=== PATIENT | female | born 1940 | race Caucasian/White ===

== ENCOUNTER 2018-08-17 10:42 | Observation (INO) ==
[2018-08-17] MEDS ORDERED: 0.9 % Sodium Chloride 500 ML IVC ONE (11:14)
[2018-08-17] MEDS ORDERED: Isovue-370 500 ML INFUS..BTL IV ONE (11:14)
--- NOTE | 2018-08-17 11:15 | Emergency Department Note ---
Disposition Clinical Impression: Pleural effusion, left Urinary tract infection Qualifiers: Urinary tract infection type: site unspecified Hematuria presence: without h ematuria Qualified Code(s): N39.0 - Urinary tract infection, site not specified Disposition: Admitted As Inpatient Condition: Fair Time of Disposition: 13:13 SOB HPI - General Chief Complaint: ED Shortness of Breath/Dyspnea Stated Complaint: ERIC Time Seen by Provider: 08/17/18 11:01 Source: patient, family (Granddaughter) Mode of arrival: ambulatory Limitations: no limitations Nursing Notes Reviewed: Yes Vital Signs Reviewed: Yes - History of Present Illness 78-year-old female history of lung, breast and pancreatic cancer which have all been treated and reportedly in remission presents emergency department with difficulty breathing. She states over the past week she is progressively more short of breath unable to catch her breath. She denies any fever coffer congestion. No chest pain. She cannot lay flat. She can only speak in 2 word sentences. She recently had a CT of her abdomen performed by her oncologist Dr. Kahn which at that time did reveal a left pleural effusion. She was not aware of the results. She also reports a history of DVT MPE when she was 1st diagnosed with lung cancer and was on Lovenox for 6 months but currently does not take anything. Her history includes right lung cancer which she received for radiation treatments that ended in 2015, she recently was diagnosed with breast cancer and had a lumpectomy to the left and was treated with radiation which ended February 2018. She had a history of pancreatic cancer 2011 and had a Whipple procedure. She otherwise denies any other complaints such as abdominal pain nausea vomiting urinary complaints. Pt Subjective Complaint: shortness of breath - Related Data Home Medications Medication Instructions Recorded Confirmed Aspirin Enteric Coated [Aspirin EC] 81 mg PO DAILY 07/08/15 08/17/18 Lisinopril/Hydrochlorothiazide 0.5 tab PO BID 07/08/15 08/17/18 [Zestoretic 10-12.5 mg Tablet] DiphenhydraMINE [Benadryl] 25 mg PO HS PRN 06/21/17 08/17/18 Docusate [Colace] 100 mg PO BID PRN 02/20/18 08/17/18 Allergies Allergy/AdvReac Type Severity Reaction Status Date / Time metformin AdvReac See Verified 08/17/18 10:46 Comments All systems ED: reviewed and negative except as stated. Review of Systems: As Per HPI Constitutional: Denies: fever, chills, weakness ENT ED: Denies: congestion Cardiovascular: Reports: dyspnea on exertion, orthopnea. Denies: chest pain, syncope Respiratory: Reports: dyspnea. Denies: cough Gastrointestinal: Denies: abdominal pain, nausea, vomiting, hematemesis Genitourinary: Denies: urgency, dysuria Musculoskeletal: Denies: back pain, neck pain Integumentary: Denies: rash, abrasion Neurological: Denies: headache Psychiatric: Denies: anxiety, depression Endocrine: Reports: fatigue Hematological/Lymphatic: Denies: easy bleeding Past Medical History - Past Medical History Attestation: Yes The following information was validated with the patient. Source: patient Medical history: Reports: cancer, diabetes, GERD, hypertension, pulmonary embolus, renal disease, thyroid disease Psychiatric history: Reports: anxiety - Social History Smoking Status: Former smoker Smokeless Tobacco Status: No Alcohol use: Reports: none Drug use: Reports: none Physical Exam - General Limitations: no limitations General appearance: alert, in distress (Mild respiratory, conversational dyspnea) - Head Head exam: atraumatic, normocephalic, normal inspection - Eye Eye exam: Present: normal appearance, PERRL, EOMI - ENT ENT exam: normal exam, normal oropharynx, mucous membranes moist - Neck Neck exam: Present: normal inspection, full ROM, trachea midline. Absent: tenderness - Chest Chest inspection: Present: normal inspection, symmetric chest wall rise, other (Report to the right chest, left lumpectomy). Absent: tenderness - Respiratory Respiratory exam: Present: respiratory distress (Conversational dyspnea), other (Decreased breath sounds to the left lung [place]). Absent: wheezes - Expanded Respiratory Exam Location: decreased breath sounds: Left - Cardiovascular Cardiovascular exam: Present: normal rhythm, tachycardia, normal heart sounds - Expanded Cardiovascular Exam Peripheral pulses: 2+: radial (R), radial (L) - Abdominal Exam Abdominal exam: Present: soft, Non-Tender, normal bowel sounds, scar (Midline). Absent: tenderness, distention, guarding, rebound, rigidity - Extremities Exam Extremities exam: Present: normal inspection, full ROM, normal capillary refill. Absent: tenderness, pedal edema, calf tenderness - Back Exam Back exam: Present: normal inspection, full ROM. Absent: tenderness - Neurological Exam Neurological exam: Present: alert, oriented X3, normal gait - Psychiatric Psychiatric exam: Present: normal affect, normal mood - Skin Skin exam: Present: warm, dry, intact, normal color. Absent: rash, cyanosis, diaphoresis Course Course Narrative: Patient presents with difficulty breathing progressively worse over the past week. She does have history of cancer. She was hypoxic and tachycardic on initial vital signs. She SIRS criteria. With her immunocompromised history, sepsis workup initiated. On physical exam lung field is clear to auscultation in the left side was diminished. Radial pulses are equal bilaterally. Given her recent history of cancer and history of blood clots will also obtain a CT of the chest to evaluate for possible blood clots as well. - Reevaluation(s) Reevaluation #1: Chest x-ray shows a large left-sided pleural effusion. This is likely cause of her symptoms today. However given her history of pulmonary embolism and malignancy will continue to evaluate for possible pulmonary embolism. Her labs shows a mild leukocytosis her platelets are 500 her INR is normal with some mild electrolyte abnormalities. Her lactate is less than 2. Her urinalysis does appear consistent with infection and will treat for urinary tract infection. She has been initiated on vancomycin and Zosyn given her initial sepsis alert. Patient will require admission and likely thoracentesis. At this time her respiratory status has improved. After 500 mL of normal saline her blood pressure remains normal in her heart rate has come down to 100. She is less dyspneic at rest and is actually 99 to 100% on room air. At this time she does not require immediate thoracentesis. Will likely consult interventional radiology for drainage. Time: 13:13 Reevaluation #2: CT scan of the chest does not reveal acute pulmonary embolism. Patient continues to be hemodynamically stable. She will be admitted and further management. Impression is left pleural effusion, dyspnea, urinary tract infection. Time: 14:24 - Consultations Consultation #1: Spoke with on-call hospitalist raffy Farr to admit for left pleural effusion, UTI, dyspnea. No further orders at this time Time: 14:24 Vital Signs Temperature 97.5 F L 08/17/18 10:47 Pulse Rate 117 08/17/18 10:47 Respiratory Rate 28 08/17/18 10:47 Blood Pressure 126/94 08/17/18 10:47 O2 Sat by Pulse Oximetry 95 08/17/18 10:47 Temperature 97.5 F L 08/17/18 10:47 Pulse Rate 117 08/17/18 10:47 Respiratory Rate 28 08/17/18 10:47 Blood Pressure 126/94 08/17/18 10:47 O2 Sat by Pulse Oximetry 95 08/17/18 10:47 Oxygen Delivery Oxygen Delivery Room Air Shortness of Breath/Dyspnea - MDM Narrative Medical decision making narrative: Patient was discussed with my attending physician who agrees with ED management and final disposition. They independently evaluated the patient. Please refer to their attestation to this encounter for additional information. This note was generated by [employer] voice recognition software and as a result grammatical or spelling errors may occur using this program. - Medical Records Medical records reviewed: Yes I reviewed the patient's medical records. - Lab Data Lab results reviewed: Yes I reviewed the patient's lab results. Result diagrams: 08/17/18 11:48 08/17/18 11:48 Lab Results 08/17/18 08/17/18 08/17/18 Range/Units 11:46 11:48 11:48 WBC 11.7 H (4.3-11.1) K/mcL RBC 5.23 H (3.82-4.97) M/mcL Hgb 15.4 (11.5-15.4) g/dL Hct 45.7 H (35.3-44.9) % MCV 87.4 (83.0-100.0) fL MCH 29.4 (28.0-33.3) pg MCHC 33.7 (31.6-35.5) g/dL RDW 12.6 (11.5-14.5) % Plt Count 504 H (140-400) K/mcL MPV 8.5 L (9.4-12.4) fL Immature Gran % 0.4 (0-4) % Seg Neutrophils % 81.1 % Lymphocytes % 11.6 % Monocytes % 5.6 % Eosinophils % 1.0 % Basophils % 0.3 % Neutrophils # 9.5 H (1.6-8.9) K/mcL Lymphocytes # 1.4 (0.6-4.6) K/mcL Monocytes # 0.7 (0.0-1.3) K/mcL Eosinophils # 0.1 (0.0-0.6) K/mcL Basophils # 0.0 (0.0-0.2) K/mcL PT 11.3 (9.4-12.1) Seconds INR 1.0 APTT 31.4 (26.0-36.0) Seconds Sodium (136-145) mEq/L Potassium (3.5-5.1) mEq/L Chloride (98-107) mEq/L Carbon Dioxide (23-29) mEq/L BUN (8-23) mg/dL Creatinine (0.60-1.20) mg/dL Est GFR ( Amer) (> 60) Est GFR (Non-Af Amer) (> 60) BUN/Creatinine Ratio (6-26) Glucose (70-105) mg/dL Calculated Osmolality (280-300) Lactic Acid 1.5 (0.5-2.2) mmol/L Calcium (8.6-10.3) mg/dL Phosphorus (2.7-4.5) mg/dL Magnesium (1.6-2.6) mg/dL Total Bilirubin (0.3-1.0) mg/dL Direct Bilirubin (0.0-0.2) mg/dL Indirect Bilirubin (0.0-1.2) mg/dL AST (13-39) Units/L ALT (7-52) Units/L Alkaline Phosphatase (34-104) Units/L Troponin I (< 0.04) ng/mL Serum Total Protein (6.4-8.9) g/dL Albumin (3.5-5.7) g/dL Globulin (2.4-3.5) g/dL Albumin/Globulin Ratio (1.1-2.2) Lipase (11-82) Units/L Urine Color (Yellow) Urine Clarity (Clear) Urine pH (5.0-8.0) pH Units Ur Specific [place] (1.010-1.025) Urine Protein (Neg-Trace) mg/dL Urine Glucose (UA) (Normal) mg/dL Urine Ketones (Negative) mg/dL Urine Blood (Negative) Urine Nitrite (Negative) Urine Bilirubin (Negative) Urine Urobilinogen (Normal) mg/dL Ur Leukocyte Esterase (Negative) Urine Microscopic RBC (0-3) per hpf Urine Microscopic WBC (0-3) per hpf Ur Squamous Epith Cells (None-Few) per lpf Urine Bacteria (None-Few) per hpf Hyaline Casts (None-Few) per lpf Ur Culture Indicated? (NO) 08/17/18 08/17/18 Range/Units 11:48 12:29 WBC (4.3-11.1) K/mcL RBC (3.82-4.97) M/mcL Hgb (11.5-15.4) g/dL Hct (35.3-44.9) % MCV (83.0-100.0) fL MCH (28.0-33.3) pg MCHC (31.6-35.5) g/dL RDW (11.5-14.5) % Plt Count (140-400) K/mcL MPV (9.4-12.4) fL Immature Gran % (0-4) % Seg Neutrophils % % Lymphocytes % % Monocytes % % Eosinophils % % Basophils % % Neutrophils # (1.6-8.9) K/mcL Lymphocytes # (0.6-4.6) K/mcL Monocytes # (0.0-1.3) K/mcL Eosinophils # (0.0-0.6) K/mcL Basophils # (0.0-0.2) K/mcL PT (9.4-12.1) Seconds INR APTT (26.0-36.0) Seconds Sodium 130 L (136-145) mEq/L Potassium 4.3 (3.5-5.1) mEq/L Chloride 95 L (98-107) mEq/L Carbon Dioxide 21 L (23-29) mEq/L BUN 20 (8-23) mg/dL Creatinine 0.83 (0.60-1.20) mg/dL Est GFR ( Amer) > 60 (> 60) Est GFR (Non-Af Amer) > 60 (> 60) BUN/Creatinine Ratio 24 (6-26) Glucose 151 H (70-105) mg/dL Calculated Osmolality 276 L (280-300) Lactic Acid (0.5-2.2) mmol/L Calcium 9.5 (8.6-10.3) mg/dL Phosphorus 3.6 (2.7-4.5) mg/dL Magnesium 1.9 (1.6-2.6) mg/dL Total Bilirubin 1.0 (0.3-1.0) mg/dL Direct Bilirubin 0.2 (0.0-0.2) mg/dL Indirect Bilirubin 0.8 (0.0-1.2) mg/dL AST 18 (13-39) Units/L ALT 17 (7-52) Units/L Alkaline Phosphatase 204 H (34-104) Units/L Troponin I < 0.03 (< 0.04) ng/mL Serum Total Protein 7.3 (6.4-8.9) g/dL Albumin 4.0 (3.5-5.7) g/dL Globulin 3.3 (2.4-3.5) g/dL Albumin/Globulin Ratio 1.2 (1.1-2.2) Lipase < 3 L (11-82) Units/L Urine Color Yellow (Yellow) Urine Clarity Hazy A (Clear) Urine pH 5.5 (5.0-8.0) pH Units Ur Specific [place] 1.020 (1.010-1.025) Urine Protein Trace (Neg-Trace) mg/dL Urine Glucose (UA) Normal (Normal) mg/dL Urine Ketones 15 H (Negative) mg/dL Urine Blood Negative (Negative) Urine Nitrite Positive A (Negative) Urine Bilirubin Small H (Negative) Urine Urobilinogen Normal (Normal) mg/dL Ur Leukocyte Esterase Large H (Negative) Urine Microscopic RBC 3-5 H (0-3) per hpf Urine Microscopic WBC TNTC H (0-3) per hpf Ur Squamous Epith Cells Many H (None-Few) per lpf Urine Bacteria Many H (None-Few) per hpf Hyaline Casts Few (None-Few) per lpf Ur Culture Indicated? NO. A (NO) - Radiology Data Radiology results reviewed: Yes I reviewed the patient's radiology results. Chest X-Ray 08/17/18 11:04 IMPRESSION: Large left pleural effusion, new from 06/18/2018. D/ / Bashir Zuniga MD / Bashir Zuniga MD Interpreting Provider: Bashir Zuniga MD Chest CTA 08/17/18 11:14 IMPRESSION: No evidence of acute pulmonary embolism. Large left pleural effusion with partial left lung collapse. Post radiation change in the right lung. D/ / Bashir Zuniga MD / Bashir Zuniga MD Interpreting Provider: Bashir Zuniga MD - EKG Data EKG attestation: Yes I reviewed and interpreted this EKG. EKG results narrative: EKG performed 1104 sinus tachycardia 111 beats per minute, normal axis, good R wave progression, no ST elevation or depression, no T wave inversion, intervals appear within normal limits. There is no old EKG available for comparison at this time, no acute ischemic changes. Attestation Statement - Attestation Attestation: I examined this patient and my medical decision-making was reviewed with the Resident Physician. I agree with the documented findings, disposition and treatment plan as described except to the extent set forth below. Findings consistent with large left-sided pleural effusion. We will admit for further management and drainage by interventional radiology. I do think the patient's dyspnea is exacerbated by the underlying pleural effusion. She will be admitted for further management
[2018-08-17 12:00] LABS: Basophils % 0.3 %; Eosinophils # 0.1 K/mcL (0.0-0.6); Hematocrit 45.7 % (35.3-44.9); Hemoglobin 15.4 g/dL (11.5-15.4); Immature Granulocytes % 0.4 % (0-4); Lymphocytes # 1.4 K/mcL (0.6-4.6); Lymphocytes % 11.6 %; Mean Corpuscular HGB Conc 33.7 g/dL (31.6-35.5); Mean Corpuscular Hemoglobin 29.4 pg (28.0-33.3); Mean Corpuscular Volume 87.4 fL (83.0-100.0); Mean Platelet Volume 8.5 fL (9.4-12.4); Monocytes # 0.7 K/mcL (0.0-1.3); Monocytes % 5.6 %; Neutrophils # 9.5 K/mcL (1.6-8.9); Platelet Count 504 K/mcL (140-400); Red Blood Count 5.23 M/mcL (3.82-4.97); Red Cell Distribution Width 12.6 % (11.5-14.5); Segmented Neutrophils % 81.1 %
[2018-08-17 12:07] LABS: Prothrombin Time 11.3 Seconds (9.4-12.1)
[2018-08-17 12:10] LABS: Activated Partial Thrombo Time 31.4 Seconds (26.0-36.0)
[2018-08-17 12:24] LABS: Alanine Aminotransferase 17 Units/L (7-52); Albumin/Globulin Ratio 1.2 (1.1-2.2); Alkaline Phosphatase 204 Units/L (34-104); Aspartate Amino Transferase 18 Units/L (13-39); BUN/Creatinine Ratio 24 (6-26); Bilirubin,Direct 0.2 mg/dL (0.0-0.2); Bilirubin,Indirect 0.8 mg/dL (0.0-1.2); Blood Urea Nitrogen 20 mg/dL (8-23); Calcium 9.5 mg/dL (8.6-10.3); Carbon Dioxide 21 mEq/L (23-29); Chloride 95 mEq/L (98-107); Globulin 3.3 g/dL (2.4-3.5); Glucose 151 mg/dL (70-105); Lipase < 3 Units/L (11-82); Magnesium 1.9 mg/dL (1.6-2.6); Osmolality,Calculated 276 (280-300); Phosphorous 3.6 mg/dL (2.7-4.5); Potassium 4.3 mEq/L (3.5-5.1); Sodium 130 mEq/L (136-145); Total Protein 7.3 g/dL (6.4-8.9); Troponin I < 0.03 ng/mL (< 0.04); eGFR For Non-African Americans > 60 (> 60)
[2018-08-17 12:44] LABS: Bilirubin,Urine Small (Negative); Blood,Urine Negative (Negative); Glucose,Urine (UA) Normal (Normal); Ketones,Urine 15 mg/dL (Negative); Leukocyte Esterase,Urine Large (Negative); Nitrite,Urine Positive (Negative); PH,Urine 5.5 pH Units (5.0-8.0); Protein,Urine Trace mg/dL (Neg-Trace); Urobilinogen,Urine Normal (Normal)
[2018-08-17 12:47] LABS: Bacteria,Urine Many per hpf (None-Few); Hyaline Casts,Urine Few per lpf (None-Few); Squamous Epithelial Cell,Urine Many per lpf (None-Few); WBC,Urine TNTC per hpf (0-3)
[2018-08-17 12:50] LABS: Clarity,Urine Hazy (Clear); Color,Urine Yellow (Yellow)
[2018-08-17] MEDS ORDERED: Piperacillin/Tazobactam 3.375 GM in Water for inj. (sterile) 20 ML 20 ML IVP ONE (13:05)
[2018-08-17] MEDS ORDERED: Naloxone 0.4 MG/ML INJ IVP PRN (15:11)
--- NOTE | 2018-08-17 15:36 | Internal Med History&Physical ---
Date of Encounter: 08/17/18 Time of Encounter: 15:34 Internal Medicine - H&P: HPI Chief complaint: difficulty breathing Admitted From: Home Plans for Post Hospital Care: Home History of present illness: Ms. Chung is a 78 year old female past medical history of diabetes not on any medication, hypertension, pancreatic cancer in 2011 status post Whipple and chemotherapy, right lung cancer in 2015 status post radiation and breast cancer in December 2017 status post lumpectomy and radiation is coming in with complain of difficulty breathing for past 2 weeks. Patient had her regular follow-up visit with oncologist in June at which time she had blood work and a CT scan follow-up ordered which she was about to go coming Saturday to discuss with her oncologist. However the past 2 weeks she has been having difficulty breathing which has progressed and or past 2-3 days has become worse which made her to come to ER. She denies any fevers or chills, nausea, vomiting or diarrhea. Denies any chest pain. Has some cough but denies any phlegm production. He had increased difficulty breathing on lying flat. Denies any previous cardiac history. Patient does have a history of pulmonary embolism over 3-4 years ago and was on blood thinner at that time are not currently. Patient denies any abdominal pain urinary frequency or urgency or bowel complaints except on and off constipation. She has UTI about 4 years ago. Denies any antibiotic use in the last year. Patient was evaluated in the ER with the CTA which showed no pulmonary embolism, large pleural effusion with partial lung collapse and radiation changes in the right. Patient had some difficulty breathing and was tachycardic. Labs shows white count of 11.7 and abnormal UA. Patient was prescribed vancomycin and Zosyn given difficulty breathing tachycardia. Admission was requested for further management. On interview patient in no distress able to count 1-20 in 1 breath. Slightly tachycardic. Blood pressure 125/91. She denies any chest pain. Currently feels slightly short of breath. Even asks to go home if possible. She was about to get vancomycin and Zosyn which were held by me given her lab abnormalities and SIRS criteria could be explained by pleural effusion and her UA was abnormal but poor sample and without any symptoms. She denies any urinary complaints, chest pain, leg swelling, abdominal pain. She does have chronic back pain. She manages her diabetes without medication only with diet. Past Med Surg Social Fam HX - Past Medical History Medical history: cancer, diabetes, GERD, hypertension, pulmonary embolus, renal disease, thyroid disease Additional medical history: pancreatic and breast and lung Cancer. CKD. [place] carinoma of lung. Thyroid nodule Psychiatric history: anxiety - Past Surgical History Additional surgical history: Whipple. left breast lumpectomy - Social History Smoking Status: Former smoker Smokeless Tobacco Status: No Alcohol use: none Drug use: none - Additional Family History Additional family history: sister had Breast cancer in 50s, Father had rheumatic fever and heart disease Internal Medicine - H&P: Meds Aspirin Enteric Coated [Aspirin EC] 81 mg PO DAILY 07/08/15 [History] Lisinopril/Hydrochlorothiazide [Zestoretic 10-12.5 mg Tablet] 0.5 tab PO BID 07/08/15 [History] DiphenhydraMINE [Benadryl] 25 mg PO HS PRN 06/21/17 [History] Docusate [Colace] 100 mg PO BID PRN 02/20/18 [History] Allergy/AdvReac Type Severity Reaction Status Date / Time metformin AdvReac See Verified 08/17/18 10:46 Comments All Systems PM: A 10-system review of systems was performed and is negative for pertinent findings except as documented above in the HPI. - Constitutional Vitals: Temp Pulse Resp BP Pulse Ox 97.5 F L 91 18 125/91 95 08/17/18 10:47 08/17/18 14:43 08/17/18 14:43 08/17/18 14:43 08/17/18 14:43 Exam: Constitutional: Vitals as noted. Conversant. No Apparent Distress. Well groomed. Eyes : Sclera white, conjunctiva clear, no lid lag, PEARLA. ENT : Grossly normal hearing. Oropharyngeal exam unremarkable. Moist mucus mem branes. No JVD, no cervical lymphadenopathy. no thyromegaly or mass. Respiratory : Decreased air entry on LT in lower and mid lung [place]. Rt entry good. No accessory muscle use, rales, rhonchi or wheezes Cardiovascular : Tachycardic, Normal rhythm, +S1, +S2. no murmur, gallop, rubs. No chest wall tenderness, Lt breast absent GI/Abdominal : Soft, Non-tender, Non-distended, normal bowel sounds, soft, no peritoneal signs. no orgenomegaly or mass appreciated. no hernia. Musculoskeletal: no deformity noted. no edema or cyanosis. warm extremities, pulses palpable and symmetrical in UE/LE. no calf tenderness. Neurological: AO X3, CN II-XII grossly intact, grossly normal motor and sensory exam. Skin: No skin rash, lesions or ulcers noted. Pych: Good insight and judgement. Intact memory. AOx3. Internal Med - H&P Results - Labs CBC & Chem 7: 08/17/18 11:48 08/17/18 11:48 Labs: Short CBC 08/17/18 Range/Units 11:48 WBC 11.7 H (4.3-11.1) K/mcL Hgb 15.4 (11.5-15.4) g/dL Hct 45.7 H (35.3-44.9) % Plt Count 504 H (140-400) K/mcL Neutrophils # 9.5 H (1.6-8.9) K/mcL BMP 08/17/18 11:48 Sodium 130 L Potassium 4.3 Chloride 95 L Carbon Dioxide 21 L BUN 20 Creatinine 0.83 Glucose 151 H Calcium 9.5 Cardiac Enzymes 08/17/18 Range/Units 11:48 Troponin I < 0.03 (< 0.04) ng/mL Liver Function 08/17/18 Range/Units 11:48 Total Bilirubin 1.0 (0.3-1.0) mg/dL Direct Bilirubin 0.2 (0.0-0.2) mg/dL AST 18 (13-39) Units/L ALT 17 (7-52) Units/L Alkaline Phosphatase 204 H (34-104) Units/L Albumin 4.0 (3.5-5.7) g/dL Urine 08/17/18 Range/Units 12:29 Urine Color Yellow (Yellow) Urine Clarity Hazy A (Clear) Urine pH 5.5 (5.0-8.0) pH Units Ur Specific [place] 1.020 (1.010-1.025) Urine Protein Trace (Neg-Trace) mg/dL Urine Glucose (UA) Normal (Normal) mg/dL - Impressions ITS Impressions Chest X-Ray 08/17/18 11:04 IMPRESSION: Large left pleural effusion, new from 06/18/2018. D/ / Bashir Zuniga MD / Bashir Zuniga MD Interpreting Provider: Bashir Zuniga MD Chest CTA 08/17/18 11:14 IMPRESSION: No evidence of acute pulmonary embolism. Large left pleural effusion with partial left lung collapse. Post radiation change in the right lung. D/ / Bashir Zuniga MD / Bashir Zuniga MD Interpreting Provider: Bashir Zuniga MD - Assessment and plan (1) Pleural effusion, left Current Visit: Yes Status: Acute Assessment and plan: Shortness of breath with large pleural effusion - CTA negative for pulmonary embolism we will arrange - Troponin negative and EKG with sinus tachycardia - In the setting of previous cancer malignant pleural effusion in differential. - We will arrange for IR guided diagnostic and therapeutic thoracentesis tomorrow. We will send pleural fluid sample for testing cytology, pH, protein, LDH, cell count and glucose - Does not appear to have infectious process ongoing. SIRS criteria could be explained by her effusion. We will follow up blood cultures - We will hold antibiotics as of now and monitor. (2) Abnormal urinalysis Current Visit: Yes Status: Acute Assessment and plan: - Patient asymptomatic - Poor urine sample - We will repeat urine analysis - We will consider antibiotic depending on the results and patient's clinical status. (3) History of pulmonary embolism Current Visit: Yes Status: Acute Assessment and plan: - No evidence of PE - Monitor for now (4) History of pancreatic cancer Current Visit: Yes Status: Acute Assessment and plan: - Malignant pleural effusion possibility - Follow-up pleural fluid studies - Recent CA-19-9 on 08/13/2018 were 1700 compared to 200s in 07/01/2018 - We will consult oncology (5) History of breast cancer Current Visit: Yes Status: Acute (6) HTN (hypertension) Current Visit: Yes Status: Acute Assessment and plan: - Blood pressure currently stable - Monitor off antihypertensives given large pleural effusion Qualifiers: Hypertension type: essential hypertension Qualified Code(s): I10 - Essential (primary) hypertension (7) Diabetes Current Visit: Yes Status: Acute Assessment and plan: - Management diet at home - Monitor Accu-Cheks Qualifiers: Qualified Code(s): E11.9 - Type 2 diabetes mellitus without complications - Time Spent With Patient Total time spent is greater than 50% in coordination of care (as documented) at patient's floor/unit and/or counseling patient:
[2018-08-17] MEDS: *HR* Heparin 5,000 UNIT/ML VIAL SQ SCH (22:06)
[2018-08-17] MEDS ORDERED: Melatonin 3 MG TABLET PO ONE (23:06)
[2018-08-18] MEDS ORDERED: Piperacillin/Tazobactam 3.375 GM in 0.9 % Sodium Chloride Mini Bag 100 ML IVPB SCH
[2018-08-18 05:02] LABS: Bilirubin,Urine Negative (Negative); Blood,Urine Negative (Negative); Clarity,Urine Clear (Clear); Color,Urine Yellow (Yellow); Glucose,Urine (UA) Normal (Normal); Ketones,Urine 40 mg/dL (Negative); Leukocyte Esterase,Urine Moderate (Negative); Nitrite,Urine Positive (Negative); PH,Urine 5.5 pH Units (5.0-8.0); Protein,Urine Negative (Neg-Trace); Specific Gravity,Urine > 1.030 (1.010-1.025); Urobilinogen,Urine Normal (Normal)
[2018-08-18 05:05] LABS: Bacteria,Urine Many per hpf (None-Few); Hyaline Casts,Urine None Seen per lpf (None-Few); Squamous Epithelial Cell,Urine Many per lpf (None-Few); WBC,Urine 30-50 per hpf (0-3)
[2018-08-18 05:09] LABS: Basophils # 0.1 K/mcL (0.0-0.2); Basophils % 0.5 %; Eosinophils # 0.3 K/mcL (0.0-0.6); Eosinophils % 3.2 %; Hematocrit 42.6 % (35.3-44.9); Hemoglobin 14.1 g/dL (11.5-15.4); Immature Granulocytes % 0.3 % (0-4); Lymphocytes # 2.1 K/mcL (0.6-4.6); Lymphocytes % 21.2 %; Mean Corpuscular HGB Conc 33.1 g/dL (31.6-35.5); Mean Corpuscular Volume 87.7 fL (83.0-100.0); Mean Platelet Volume 8.7 fL (9.4-12.4); Monocytes # 0.8 K/mcL (0.0-1.3); Monocytes % 8.2 %; Neutrophils # 6.5 K/mcL (1.6-8.9); Platelet Count 517 K/mcL (140-400); Red Blood Count 4.86 M/mcL (3.82-4.97); Red Cell Distribution Width 12.7 % (11.5-14.5); Segmented Neutrophils % 66.6 %
[2018-08-18 05:24] LABS: Alanine Aminotransferase 15 Units/L (7-52); Albumin 3.7 g/dL (3.5-5.7); Albumin/Globulin Ratio 1.3 (1.1-2.2); Alkaline Phosphatase 179 Units/L (34-104); Aspartate Amino Transferase 17 Units/L (13-39); BUN/Creatinine Ratio 25 (6-26); Blood Urea Nitrogen 19 mg/dL (8-23); Calcium 9.1 mg/dL (8.6-10.3); Carbon Dioxide 24 mEq/L (23-29); Chloride 96 mEq/L (98-107); Globulin 2.9 g/dL (2.4-3.5); Glucose 116 mg/dL (70-105); Osmolality,Calculated 273 (280-300); Potassium 4.3 mEq/L (3.5-5.1); Sodium 130 mEq/L (136-145); Total Protein 6.6 g/dL (6.4-8.9); eGFR For Non-African Americans > 60 (> 60)
[2018-08-18] MEDS: *HR* Heparin 5,000 UNIT/ML VIAL SQ SCH (06:05)
[2018-08-18 08:10] VITALS: BP 131/96
[2018-08-18] MEDS ORDERED: Aspirin Enteric Coated 81 MG Tablet PO SCH (09:00)
--- NOTE | 2018-08-18 10:43 | Procedure Note ---
Date of procedure: 08/18/18 Pre-op diagnosis: pleural effusion Post-op diagnosis: same Procedure: Thoracentesis Date: 08/18/2018 Time: 948 Indication: Large pleural effusion Resident: Bry Byers DO Attending: Tereso Laguerre MD A time-out was completed verifying correct patient, procedure, site, positioning, and special equipment if applicable. The patients Left side was prepped and draped in a sterile manner after the appropriate infiltration level was confirmed by ultrasound. 1% lidocaine was used anesthetize the surrounding skin. A finder needle was then used to locate fluid and red/brown fluid was obtained. A 10-blade scalpel used to make the incision. The thoracentesis catheter was then threaded without difficulty. The patient had 1400ml of red/brown fluid removed. Tereso Laguerre MD was present for the entire procedure. A post-procedure chest x-ray was ordered and the fluid will be sent for several studies. Estimated Blood Loss: 0ml The patient tolerated the procedure well and there were no complications. Anesthesia: local Surgeon: Bry Byers Was there an gallery assistant present: Yes Shipping And Receiving Specialist: Tereso Laguerre Estimated blood loss (cc): 0 Specimen: pleural fluid Condition: stable Disposition: no change
--- NOTE | 2018-08-18 11:10 | Oncology Inp Consult Note ---
<Ben Bronson - Last Filed: 08/18/18 13:43> Date of Encounter: 08/18/18 Time of Encounter: 11:07 Assessment and Plan (1) Pleural effusion, left Status: Acute Assessment and plan: S/p thoracentesis this afternoon. Significant improvement in symptoms since. Approx 1.5 L of fluid removed. Pleural fluid testing has been ordered to evaluate for possible malignant etiology. Patient is doing well and will be ready for discharge this afternoon per primary team. She will need to follow up with Dr. Kahn in office for findings of pleural fluid analysis with further recommendations pending lab findings. (2) History of pancreatic cancer Status: Acute Assessment and plan: Pancreatic cancer s/p whipple in 2013. Possible metastasis to right lower lobe vs lung primary. CA 19-9 increasing over the past month, continues to rise Patient missed todays outpatient appointment with Dr. Kahn due to hospitalization. Dr. Kahn has seen her during this visit, with further recommendations pending her attestation will need require further outpatient follow up. - Data of Consult Patient: known to practice within the last 3 years Consult date: 08/17/18 Requesting Physician: Alessandro Jiménez MD Primary Care Provider: Mike Eastman DO - Consult Narrative Reason for consult: Increasing CA-19-9, left pleural effusion history of pancreatic/lung cancer History of present illness: Ms. Chung is a very pleasant 78-year-old female with a history significant for pancreatic, lung, and breast cancers. She is a known patient of Dr. Kahn, and was scheduled to see her today in the outpatient clinic. Patient was seen and evaluated at the bedside in the presence of her daughter and history was obtained from the patient as well as the chart. She presented yesterday afternoon to the ED for evaluation of worsening shortness of breath. She reports of this and been present for approximately 2 weeks and acutely worsened over the past few days. She denies shortness of breath, fever, chills, nausea, vomiting, or bowel changes. She endorses mild intermittent coughing without production of phlegm or blood. She admits to a history of pulmonary embolism proximally 4 years ago she is not on blood thinning medication at this time. She was initially started on antibiotic therapy by the ED this was later discontinued by the hospitalist secondary to absence of infectious source. CTA was obtained with no evidence of pulmonary embolism however a large left pleural effusion with compression atelectasis was identified as well as post radiation changes of the right lung. By my evaluation she was status post thoracentesis with removal of approximately 1.5 L of fluid. She does admit to improved respiratory status since procedure. Pancreatic cancer was diagnosed in 2011 treated with Whipple and chemotherapy in 2012 Right lower lobe nodule identified in 2015 found to be well-differentiated adenocarcinoma, pancreatic versus lung primary disease. She underwent SBRT in December 2016. 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 CA-19-9 found to be increased for ~20>200 at last oncology office visit. This was repeated on 08/12/2018 and found to be ~1700. CT of the abdomen pelvis was also done on 07/29/2018 without evidence of local pancreatic recurrence, left pleural effusion was identified of moderate size on that study. Ms. Chung was scheduled for follow-up outpatient oncology this afternoon. Past Med Surg Social Fam HX - Past Medical History Medical history: cancer, diabetes, GERD, hypertension, pulmonary embolus, renal disease, thyroid disease Additional medical history: pancreatic and breast and lung Cancer. CKD. Adenocarinoma of lung. Thyroid nodule Psychiatric history: anxiety - Past Surgical History Additional surgical history: Whipple. left breast lumpectomy - Social History Smoking Status: Former smoker Smokeless Tobacco Status: No Alcohol use: none Drug use: none - Family History Father Living Status: Age at : 86 Cause of : [place] Hx Family Cardiac Disorders: Yes Hx Family Respiratory Disorders: No Hx Family Medical Disorders: Yes Medications and Allergies RX: Aspirin Enteric Coated [Aspirin EC] 81 mg PO DAILY 07/08/15 [History] RX: Lisinopril/Hydrochlorothiazide [Zestoretic 10-12.5 mg Tablet] 0.5 tab PO BID 07/08/15 [History] RX: DiphenhydraMINE [Benadryl] 25 mg PO HS PRN 06/21/17 [History] RX: Docusate [Colace] 100 mg PO BID PRN 02/20/18 [History] Allergy/AdvReac Type Severity Reaction Status Date / Time metformin AdvReac See Verified 08/17/18 10:46 Comments Constitutional: Absent: chills, night sweats, weight loss Eyes: Absent: change in vision Nose, mouth and throat: Absent: dysphagia Breasts: Present: other (Status post partial mastectomy) Cardiovascular: Present: dyspnea. Absent: chest pain Respiratory: Present: dyspnea. Absent: hemoptysis Gastrointestinal: Absent: abdominal pain, change in bowel habits, dysphagia Genitourinary: Absent: dysuria Neurological: Absent: confusion, dizziness Hematologic/Lymphatic: Absent: easy bleeding, easy bruising, lymphadenopathy Oncology - Exam - Constitutional Vitals: Temp Pulse Resp BP Pulse Ox 97.9 F 110 22 131/96 94 08/18/18 08:05 08/18/18 08:05 08/18/18 08:05 08/18/18 08:05 08/18/18 08:05 General appearance: cooperative, no acute distress - Head Head exam: Present: atraumatic, normocephalic - Eye Eye exam: Present: PERRL, conjuntiva pink - ENT ENT exam: Present: mucous membranes moist - Neck Neck exam: Present: full ROM. Absent: lymphadenopathy, tenderness - Respiratory Respiratory exam: Present: decreased breath sounds (Diminished breath sounds of the left lower lung [place] with dullness to percussion) - Expanded Respiratory Exam Location: decreased breath sounds: Left, dullness to percussion: Left - Cardiovascular Cardiovascular exam: Present: RRR, +S1, +S2 - GI/Abdominal GI/Abdominal exam: Present: normal bowel sounds, soft. Absent: distended, guarding, tenderness - Extremities Exam Extremities exam: Present: normal inspection - Back Exam Back exam: Present: full ROM, normal inspection - Neurological Exam Neurological exam: Present: CN II-XII intact, oriented X3, no focal deficits, strengths equal and symetr throughout - Psychiatric Psychiatric exam: Present: normal affect, normal mood - Skin Skin exam: Present: dry Oncology - Results Labs: 08/18/18 08/18/18 08/18/18 04:20 04:20 04:20 WBC 9.8 RBC 4.86 Hgb 14.1 Hct 42.6 MCV 87.7 MCH 29.0 MCHC 33.1 RDW 12.7 Plt Count 517 H MPV 8.7 L Immature Gran % 0.3 Seg Neutrophils % 66.6 Lymphocytes % 21.2 Monocytes % 8.2 Eosinophils % 3.2 Basophils % 0.5 Neutrophils # 6.5 Lymphocytes # 2.1 Monocytes # 0.8 Eosinophils # 0.3 Basophils # 0.1 PT INR APTT Sodium 130 L Potassium 4.3 Chloride 96 L Carbon Dioxide 24 BUN 19 Creatinine 0.77 Est GFR ( Amer) > 60 Est GFR (Non-Af Amer) > 60 BUN/Creatinine Ratio 25 Glucose 116 H Calculated Osmolality 273 L Lactic Acid Calcium 9.1 Phosphorus Magnesium Total Bilirubin 1.0 Direct Bilirubin Indirect Bilirubin AST 17 ALT 15 Alkaline Phosphatase 179 H Lactate Dehydrogenase 116 L Troponin I Serum Total Protein 6.6 Albumin 3.7 Globulin 2.9 Albumin/Globulin Ratio 1.3 Lipase Urine Color Urine Clarity Urine pH Ur Specific [place] Urine Protein Urine Glucose (UA) Urine Ketones Urine Blood Urine Nitrite Urine Bilirubin Urine Urobilinogen Ur Leukocyte Esterase Urine Microscopic RBC Urine Microscopic WBC Ur Squamous Epith Cells Urine Bacteria Hyaline Casts Ur Culture Indicated? 08/18/18 08/17/18 08/17/18 04:20 12:29 11:48 WBC RBC Hgb Hct MCV MCH MCHC RDW Plt Count MPV Immature Gran % Seg Neutrophils % Lymphocytes % Monocytes % Eosinophils % Basophils % Neutrophils # Lymphocytes # Monocytes # Eosinophils # Basophils # PT INR APTT Sodium 130 L Potassium 4.3 Chloride 95 L Carbon Dioxide 21 L BUN 20 Creatinine 0.83 Est GFR ( Amer) > 60 Est GFR (Non-Af Amer) > 60 BUN/Creatinine Ratio 24 Glucose 151 H Calculated Osmolality 276 L Lactic Acid Calcium 9.5 Phosphorus 3.6 Magnesium 1.9 Total Bilirubin 1.0 Direct Bilirubin 0.2 Indirect Bilirubin 0.8 AST 18 ALT 17 Alkaline Phosphatase 204 H Lactate Dehydrogenase Troponin I < 0.03 Serum Total Protein 7.3 Albumin 4.0 Globulin 3.3 Albumin/Globulin Ratio 1.2 Lipase < 3 L Urine Color Yellow Yellow Urine Clarity Clear Hazy A Urine pH 5.5 5.5 Ur Specific [place] > 1.030 H 1.020 Urine Protein Negative Trace Urine Glucose (UA) Normal Normal Urine Ketones 40 H 15 H Urine Blood Negative Negative Urine Nitrite Positive A Positive A Urine Bilirubin Negative Small H Urine Urobilinogen Normal Normal Ur Leukocyte Esterase Moderate H Large H Urine Microscopic RBC 3-5 H 3-5 H Urine Microscopic WBC 30-50 H TNTC H Ur Squamous Epith Cells Many H Many H Urine Bacteria Many H Many H Hyaline Casts None Seen Few Ur Culture Indicated? NO. A 08/17/18 08/17/18 08/17/18 11:48 11:48 11:46 WBC 11.7 H RBC 5.23 H Hgb 15.4 Hct 45.7 H MCV 87.4 MCH 29.4 MCHC 33.7 RDW 12.6 Plt Count 504 H MPV 8.5 L Immature Gran % 0.4 Seg Neutrophils % 81.1 Lymphocytes % 11.6 Monocytes % 5.6 Eosinophils % 1.0 Basophils % 0.3 Neutrophils # 9.5 H Lymphocytes # 1.4 Monocytes # 0.7 Eosinophils # 0.1 Basophils # 0.0 PT 11.3 INR 1.0 APTT 31.4 Sodium Potassium Chloride Carbon Dioxide BUN Creatinine Est GFR ( Amer) Est GFR (Non-Af Amer) BUN/Creatinine Ratio Glucose Calculated Osmolality Lactic Acid 1.5 Calcium Phosphorus Magnesium Total Bilirubin Direct Bilirubin Indirect Bilirubin AST ALT Alkaline Phosphatase Lactate Dehydrogenase Troponin I Serum Total Protein Albumin Globulin Albumin/Globulin Ratio Lipase Urine Color Urine Clarity Urine pH Ur Specific [place] Urine Protein Urine Glucose (UA) Urine Ketones Urine Blood Urine Nitrite Urine Bilirubin Urine Urobilinogen Ur Leukocyte Esterase Urine Microscopic RBC Urine Microscopic WBC Ur Squamous Epith Cells Urine Bacteria Hyaline Casts Ur Culture Indicated? Consult Discharge Plan - Plan Referrals: Manuel Eastman DO [Primary Care Provider] - <[email or web address] - Last Filed: 08/18/18 15:39> Date of Encounter: 08/18/18 - Data of Consult Requesting Physician: Alessandro Jiménez MD Primary Care Provider: Mike Eastman DO - Consult Narrative History of present illness: Ms. Chung is a 78 year old female, patient known to us with pancreatic cancer, status post surgery, adjuvant chemotherapy in early 2012 with right lung nodule adenocarcinoma primary versus secondary status post radiation therapy as well as adenoid cystic carcinoma of the left breast in 2018 was 100 with shortness of breath worsening for 2 weeks, CT imaging had shown a large left new pleural effusion. Patient had thoracentesis today, cytology to be sent, for diagnostic workup. CA-19-9 elevation suggests recurrent pancreatic cancer. She is willing to consider further therapy after appropriate diagnostic workup. She will have a return to my clinic for follow-up soon. She is saturating fine on 2 L of oxygen post thoracentesis. X-ray need to be followed. Plan of care discussed with patient in detail. I have seen, examined, reviewed labs, imaging and above document on this patient myself and my medical decision-making was reviewed with the resident doctor Audie Contreras. I agree with the documented findings, disposition and treatment plan as described above in his documentation. Oncology - Exam - Constitutional Vitals: Temp Pulse Resp BP Pulse Ox 97.9 F 110 22 131/96 94 08/18/18 08:05 08/18/18 08:05 08/18/18 08:05 08/18/18 08:05 08/18/18 08:05 Oncology - Results Labs: 08/18/18 08/18/18 08/18/18 10:05 10:05 05:55 WBC RBC Hgb Hct MCV MCH MCHC RDW Plt Count MPV Immature Gran % Seg Neutrophils % Lymphocytes % Monocytes % Eosinophils % Basophils % Neutrophils # Lymphocytes # Monocytes # Eosinophils # Basophils # PT INR APTT Sodium Potassium Chloride Carbon Dioxide BUN Creatinine Est GFR ( Amer) Est GFR (Non-Af Amer) BUN/Creatinine Ratio Glucose POC Glucose 130 H Calculated Osmolality Lactic Acid Calcium Phosphorus Magnesium Total Bilirubin Direct Bilirubin Indirect Bilirubin AST ALT Alkaline Phosphatase Lactate Dehydrogenase Troponin I Serum Total Protein Albumin Globulin Albumin/Globulin Ratio Lipase Urine Color Urine Clarity Urine pH Ur Specific [place] Urine Protein Urine Glucose (UA) Urine Ketones Urine Blood Urine Nitrite Urine Bilirubin Urine Urobilinogen Ur Leukocyte Esterase Urine Microscopic RBC Urine Microscopic WBC Ur Squamous Epith Cells Urine Bacteria Hyaline Casts Ur Culture Indicated? Pleural Fluid Volume 950.0 Pleural Appearance Bloody A Pleural pH 8.00 Pleural RBC 0.064 H Pleural Tot Nuc Cell 2035 H Pleural Neutrophils 10.0 Pleural Band Neuts 1.0 Pleural Eosinophils 2.0 Pleural Basophils Test Not Performed Pleural Lymphocytes % 59.0 Pleural Monocytes % Test Not Performed Pleural Other Cells % 28.0 Pleural Total Protein 5.1 Pleural LDH 281 Pleural Glucose 48 Pleural Amylase 19 08/18/18 08/18/18 08/18/18 04:20 04:20 04:20 WBC 9.8 RBC 4.86 Hgb 14.1 Hct 42.6 MCV 87.7 MCH 29.0 MCHC 33.1 RDW 12.7 Plt Count 517 H MPV 8.7 L Immature Gran % 0.3 Seg Neutrophils % 66.6 Lymphocytes % 21.2 Monocytes % 8.2 Eosinophils % 3.2 Basophils % 0.5 Neutrophils # 6.5 Lymphocytes # 2.1 Monocytes # 0.8 Eosinophils # 0.3 Basophils # 0.1 PT INR APTT Sodium 130 L Potassium 4.3 Chloride 96 L Carbon Dioxide 24 BUN 19 Creatinine 0.77 Est GFR ( Amer) > 60 Est GFR (Non-Af Amer) > 60 BUN/Creatinine Ratio 25 Glucose 116 H POC Glucose Calculated Osmolality 273 L Lactic Acid Calcium 9.1 Phosphorus Magnesium Total Bilirubin 1.0 Direct Bilirubin Indirect Bilirubin AST 17 ALT 15 Alkaline Phosphatase 179 H Lactate Dehydrogenase 116 L Troponin I Serum Total Protein 6.6 Albumin 3.7 Globulin 2.9 Albumin/Globulin Ratio 1.3 Lipase Urine Color Urine Clarity Urine pH Ur Specific [place] Urine Protein Urine Glucose (UA) Urine Ketones Urine Blood Urine Nitrite Urine Bilirubin Urine Urobilinogen Ur Leukocyte Esterase Urine Microscopic RBC Urine Microscopic WBC Ur Squamous Epith Cells Urine Bacteria Hyaline Casts Ur Culture Indicated? Pleural Fluid Volume Pleural Appearance Pleural pH Pleural RBC Pleural Tot Nuc Cell Pleural Neutrophils Pleural Band Neuts Pleural Eosinophils Pleural Basophils Pleural Lymphocytes % Pleural Monocytes % Pleural Other Cells % Pleural Total Protein Pleural LDH Pleural Glucose Pleural Amylase 08/18/18 08/17/18 08/17/18 04:20 12:29 11:48 WBC RBC Hgb Hct MCV MCH MCHC RDW Plt Count MPV Immature Gran % Seg Neutrophils % Lymphocytes % Monocytes % Eosinophils % Basophils % Neutrophils # Lymphocytes # Monocytes # Eosinophils # Basophils # PT INR APTT Sodium 130 L Potassium 4.3 Chloride 95 L Carbon Dioxide 21 L BUN 20 Creatinine 0.83 Est GFR ( Amer) > 60 Est GFR (Non-Af Amer) > 60 BUN/Creatinine Ratio 24 Glucose 151 H POC Glucose Calculated Osmolality 276 L Lactic Acid Calcium 9.5 Phosphorus 3.6 Magnesium 1.9 Total Bilirubin 1.0 Direct Bilirubin 0.2 Indirect Bilirubin 0.8 AST 18 ALT 17 Alkaline Phosphatase 204 H Lactate Dehydrogenase Troponin I < 0.03 Serum Total Protein 7.3 Albumin 4.0 Globulin 3.3 Albumin/Globulin Ratio 1.2 Lipase < 3 L Urine Color Yellow Yellow Urine Clarity Clear Hazy A Urine pH 5.5 5.5 Ur Specific [place] > 1.030 H 1.020 Urine Protein Negative Trace Urine Glucose (UA) Normal Normal Urine Ketones 40 H 15 H Urine Blood Negative Negative Urine Nitrite Positive A Positive A Urine Bilirubin Negative Small H Urine Urobilinogen Normal Normal Ur Leukocyte Esterase Moderate H Large H Urine Microscopic RBC 3-5 H 3-5 H Urine Microscopic WBC 30-50 H TNTC H Ur Squamous Epith Cells Many H Many H Urine Bacteria Many H Many H Hyaline Casts None Seen Few Ur Culture Indicated? NO. A Pleural Fluid Volume Pleural Appearance Pleural pH Pleural RBC Pleural Tot Nuc Cell Pleural Neutrophils Pleural Band Neuts Pleural Eosinophils Pleural Basophils Pleural Lymphocytes % Pleural Monocytes % Pleural Other Cells % Pleural Total Protein Pleural LDH Pleural Glucose Pleural Amylase 08/17/18 08/17/18 08/17/18 11:48 11:48 11:46 WBC 11.7 H RBC 5.23 H Hgb 15.4 Hct 45.7 H MCV 87.4 MCH 29.4 MCHC 33.7 RDW 12.6 Plt Count 504 H MPV 8.5 L Immature Gran % 0.4 Seg Neutrophils % 81.1 Lymphocytes % 11.6 Monocytes % 5.6 Eosinophils % 1.0 Basophils % 0.3 Neutrophils # 9.5 H Lymphocytes # 1.4 Monocytes # 0.7 Eosinophils # 0.1 Basophils # 0.0 PT 11.3 INR 1.0 APTT 31.4 Sodium Potassium Chloride Carbon Dioxide BUN Creatinine Est GFR ( Amer) Est GFR (Non-Af Amer) BUN/Creatinine Ratio Glucose POC Glucose Calculated Osmolality Lactic Acid 1.5 Calcium Phosphorus Magnesium Total Bilirubin Direct Bilirubin Indirect Bilirubin AST ALT Alkaline Phosphatase Lactate Dehydrogenase Troponin I Serum Total Protein Albumin Globulin Albumin/Globulin Ratio Lipase Urine Color Urine Clarity Urine pH Ur Specific [place] Urine Protein Urine Glucose (UA) Urine Ketones Urine Blood Urine Nitrite Urine Bilirubin Urine Urobilinogen Ur Leukocyte Esterase Urine Microscopic RBC Urine Microscopic WBC Ur Squamous Epith Cells Urine Bacteria Hyaline Casts Ur Culture Indicated? Pleural Fluid Volume Pleural Appearance Pleural pH Pleural RBC Pleural Tot Nuc Cell Pleural Neutrophils Pleural Band Neuts Pleural Eosinophils Pleural Basophils Pleural Lymphocytes % Pleural Monocytes % Pleural Other Cells % Pleural Total Protein Pleural LDH Pleural Glucose Pleural Amylase - Attending Attestation I examined this patient and my medical decision-making was reviewed with the resident physician Dr. Ben Bronson. I agree with the documented findings, disposition and treatment plan as described except to the extent set forth below. Inpatient Charges Provider: Dr. Ivonne Aleman Consult - Inpatient: [id number]
[2018-08-18 11:32] LABS: Total Protein,Pleural Fluid 5.1 g/dL (No Ref Range)
[2018-08-18 11:50] LABS: RBC,Pleural Fluid 0.064 M/mcL
--- NOTE | 2018-08-18 12:38 | Discharge Summary ---
- NOTES TO OUTPATIENT PROVIDER Notes to Outpatient Provider: Follow-up remaining pleural fluid studies. We will need to follow up with oncology. Follow-up signs for pneumonia or UTI. Did not receive any antibiotics. Orders not resulted at time of discharge: Pending orders 08/17/18 11:48 Culture,Blood [BC] Stat 08/18/18 10:05 Cell Count w Diff, Pleural Fld [BF] AM 0400 pH,Pleural Fluid [BF] AM 0400 08/18/18 10:12 Cytology [PTH] Routine Date of Encounter: 08/18/18 Time of Encounter: 11:45 - Discharge Diagnosis (1) Pleural effusion, left Priority: Primary Status: Acute (2) Abnormal urinalysis Priority: Secondary Status: Acute (3) History of pulmonary embolism Priority: Secondary Status: Acute (4) History of pancreatic cancer Priority: Secondary Status: Acute (5) History of breast cancer Priority: Secondary Status: Acute (6) HTN (hypertension) Priority: Secondary Status: Acute Qualifiers: Hypertension type: essential hypertension Qualified Code(s): I10 - Essential (primary) hypertension (7) Diabetes Priority: Secondary Status: Acute Qualifiers: Qualified Code(s): E11.9 - Type 2 diabetes mellitus without complications Hospital course: Ms. Chung is a 78 year old female past medical history of diabetes not on any m edication, hypertension, pancreatic cancer in 2011 status post Whipple and chemotherapy, right lung cancer in 2015 status post radiation and breast cancer in December 2017 status post lumpectomy and radiation admitted for shortness of breath because of large left-sided pleural effusion. CTA negative for pulmonary embolism. Patient did not get any antibiotics given her symptoms were explainable from large pleural effusion. Patient had bedside thoracocentesis this morning with about 1.5 L of bloody fluid removed which appears to be exudative in nature by light's criteria. Does not appear to be empyematous. Could be explained by her malignancy. Further pleural fluid studies pending as of now. Blood cultures and pleural fluid cultures pending. Currently not growing anything. Patient stable after the procedure. Chest x-ray after without any pneumothorax. Will not start any antibiotic as of now as patient without any significant signs of pneumonia or sepsis. Patient also had abnormal UA with poor sample collected twice. Without any symptoms. We will monitor for now for any signs of infection. Patient would follow up with oncology patient closely. Discharge discussed with: patient, nurse, social work, cassandra consultant - Time Spent with Patient Total time spent providing and/or coordinating discharge services: Greater than 30 minutes (35) - Discharge Medications Home Medications: Aspirin Enteric Coated [Aspirin EC] 81 mg PO DAILY 07/08/15 [History] Lisinopril/Hydrochlorothiazide [Zestoretic 10-12.5 mg Tablet] 0.5 tab PO BID 07/08/15 [History] DiphenhydraMINE [Benadryl] 25 mg PO HS PRN 06/21/17 [History] Docusate [Colace] 100 mg PO BID PRN 02/20/18 [History] Allergies/Adverse Reactions: Allergy/AdvReac Type Severity Reaction Status Date / Time metformin AdvReac See Verified 08/17/18 10:46 Comments Date of admission: 08/17/18 16:01 Primary care physician: Mike Eastman DO Consults: 08/17/18 13:03 Consult to Interventional Radiology [CONS] Stat Consulting Provider: Radiology Interventional Cols Reason for Consult: left pleural effusion Call Completed: No 08/17/18 16:03 Consult to Oncology [CONS] Routine Consulting Provider: Oncology [facility] Reason for Consult: Pleural effusion, ?malignant Call Completed: Yes 08/17/18 17:00 Consult to Nutrition [CONS] Routine Comment: Consulting Provider: NUTRITION Reason for Dietary Consult: MST Score Discharging clinician: Alessandro Jiménez - Constitutional Vitals: Temp Pulse Resp BP Pulse Ox 97.9 F 110 22 131/96 94 08/18/18 08:05 08/18/18 08:05 08/18/18 08:05 08/18/18 08:05 08/18/18 08:05 Exam: Constitutional: Vitals as noted. Conversant. No Apparent Distress. Well groomed. ENT : Grossly normal hearing. Oropharyngeal exam unremarkable. Moist mucus membranes. No JVD, no cervical lymphadenopathy. no thyromegaly or mass. Respiratory : Decreased air entry on LT in lower lung [place].Improved than before. Rt entry good. No accessory muscle use, rales, rhonchi or wheezes Cardiovascular : Tachycardic, Normal rhythm, +S1, +S2. no murmur, gallop, rubs. No chest wall tenderness, Lt breast absent GI/Abdominal : Soft, Non-tender, Non-distended, normal bowel sounds, soft, no pe ritoneal signs. no orgenomegaly or mass appreciated. no hernia. Musculoskeletal: no deformity noted. no edema or cyanosis. warm extremities, pulses palpable and symmetrical in UE/LE. no calf tenderness. Neurological: AO X3, CN II-XII grossly intact, grossly normal motor and sensory exam. - Patient Status Disposition: Home, Self-Care Condition: Fair - Discharge Instructions Follow Up With: Manuel Eastman DO [Primary Care Provider] - - Diet and Activity Activity: resume usual activities as tolerated Diet: diabetic diet
[2018-08-18 13:50] LABS: Appearance of Pleural Fl Bloody (Clear)
--- NOTE | 2018-08-18 14:11 | Electrocardiograph Report ---
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
== END 2018-08-18 16:39 | disposition home or self-care (01) ==
LOC: 2NENU 10:42 → EMEROOARM 10:42 → SUATTDRO 16:01 → 2NENU 16:41
PROVIDERS: ADMIT Internal Medicine; ATTEND Internal Medicine

== ENCOUNTER 2020-04-10 14:39 | Inpatient (IN) ==
[2020-04-10 16:45] LABS: Basophils % 0.4 %; Eosinophils # 0.2 K/mcL (0.0-0.6); Eosinophils % 2.1 %; Hematocrit 37.8 % (35.3-44.9); Immature Granulocytes % 0.6 % (0-4); Lymphocytes % 9.5 %; Mean Corpuscular HGB Conc 31.7 g/dL (31.6-35.5); Mean Corpuscular Hemoglobin 26.1 pg (28.0-33.3); Mean Corpuscular Volume 82.4 fL (83.0-100.0); Mean Platelet Volume 9.3 fL (9.4-12.4); Monocytes % 9.1 %; Neutrophils # 8.2 K/mcL (1.6-8.9); Platelet Count 160 K/mcL (140-400); Red Blood Count 4.59 M/mcL (3.82-4.97); Red Cell Distribution Width 19.4 % (11.5-14.5); Segmented Neutrophils % 78.3 %; White Blood Count 10.4 K/mcL (4.3-11.1)
[2020-04-10 17:04] LABS: BUN/Creatinine Ratio 26 (6-26); Blood Urea Nitrogen 19 mg/dL (8-23); Calcium 8.6 mg/dL (8.6-10.3); Carbon Dioxide 21 mEq/L (23-29); Chloride 102 mEq/L (98-107); Glucose 126 mg/dL (70-105); Osmolality,Calculated 280 (280-300); Potassium 4.2 mEq/L (3.5-5.1); Sodium 133 mEq/L (136-145); eGFR For African Americans > 60 (> 60); eGFR For Non-African Americans > 60 (> 60)
[2020-04-10 17:10] LABS: Troponin I 0.23 ng/mL (< 0.04)
[2020-04-10] MEDS ORDERED: Aspirin 325 MG TABLET PO ONE (17:31)
[2020-04-10] MEDS ORDERED: Acetaminophen 325 MG TABLET PO PRN (18:22)
[2020-04-10] MEDS ORDERED: Naloxone 0.4 MG/ML INJ IVP PRN (18:22)
[2020-04-10] MEDS ORDERED: *HR* OxyCODONE Immed Rel 5 MG TABLET PO PRN ×2 (18:22→18:26)
[2020-04-10] MEDS ORDERED: MOM Conc 10 ML UD.LIQ PO PRN (18:22)
[2020-04-10] MEDS ORDERED: *HR* Heparin 5,000 UNIT/ML VIAL IVP PRN ×2 (18:27)
[2020-04-10] MEDS ORDERED: *HR* Heparin 5,000 UNIT/ML VIAL IVP ONE (18:27)
[2020-04-10] MEDS ORDERED: *HR* LORazepam 0.5 MG TABLET PO PRN (18:29)
[2020-04-10] MEDS ORDERED: Ondansetron ODT 4 MG TAB.RAPDIS PO PRN (18:29)
[2020-04-10] MEDS ORDERED: Heparin 25,000 UNIT/250 ML D5W 25,000 UNIT/250 ML IV.SOLN IVC SCH ×2 (18:30→20:35)
[2020-04-10 19:18] LABS: INR 1.4; Prothrombin Time 15.6 Seconds (9.4-12.1)
[2020-04-10 19:54] LABS: Activated Partial Thrombo Time 30.9 Seconds (26.0-36.0)
[2020-04-11 01:04] LABS: Basophils % 0.3 %; Eosinophils # 0.5 K/mcL (0.0-0.6); Eosinophils % 5.6 %; Hematocrit 31.4 % (35.3-44.9); Immature Granulocytes % 0.6 % (0-4); Lymphocytes # 0.9 K/mcL (0.6-4.6); Lymphocytes % 10.6 %; Mean Corpuscular HGB Conc 31.8 g/dL (31.6-35.5); Mean Corpuscular Hemoglobin 26.2 pg (28.0-33.3); Mean Corpuscular Volume 82.2 fL (83.0-100.0); Mean Platelet Volume 9.3 fL (9.4-12.4); Monocytes # 0.7 K/mcL (0.0-1.3); Neutrophils # 6.6 K/mcL (1.6-8.9); Platelet Count 143 K/mcL (140-400); Red Blood Count 3.82 M/mcL (3.82-4.97); Red Cell Distribution Width 19.2 % (11.5-14.5); Segmented Neutrophils % 74.9 %; White Blood Count 8.8 K/mcL (4.3-11.1)
[2020-04-11 01:06] LABS: Prothrombin Time 22.2 Seconds (9.4-12.1)
[2020-04-11 01:24] LABS: BUN/Creatinine Ratio 30 (6-26); Blood Urea Nitrogen 22 mg/dL (8-23); Calcium 8.1 mg/dL (8.6-10.3); Carbon Dioxide 23 mEq/L (23-29); Chloride 103 mEq/L (98-107); Chol/HDL Ratio 3.6 (0-4.9); Cholesterol 132 mg/dL (< 200); Glucose 116 mg/dL (70-105); HDL Cholesterol 37 mg/dL (40-59); LDL Cholesterol,Calculated 80 mg/dL (< 100); Magnesium 1.8 mg/dL (1.6-2.6); Osmolality,Calculated 280 (280-300); Potassium 4.1 mEq/L (3.5-5.1); Sodium 133 mEq/L (136-145); Triglycerides 77 mg/dL (< 150); eGFR For African Americans > 60 (> 60); eGFR For Non-African Americans > 60 (> 60)
[2020-04-11 07:05] LABS: Estimated Average Glucose 186 mg/dl; Hemoglobin A1C 8.1 %
[2020-04-11] MEDS ORDERED: *HR* Propofol 200 MG/20 ML VIAL IVP ONE (08:32)
[2020-04-11] MEDS ORDERED: Ondansetron 4 MG/2 ML VIAL ONE (08:32)
[2020-04-11] MEDS ORDERED: Lidocaine -MPF 2% 2 ML VIAL ONE (08:32)
[2020-04-11] MEDS ORDERED: *HR* FentaNYL (PF) 100 MCG/2 ML VIAL ONE (08:32)
[2020-04-11] MEDS ORDERED: Dexamethasone 4 MG/ML VIAL ONE (08:32)
[2020-04-11] MEDS ORDERED: *HR* Succinylcholine 200 MG/10 ML VIAL IVP ONE (08:34)
[2020-04-11] MEDS ORDERED: CeFAZolin Syr 2,000MG/20 ML 2,000 MG/20 ML SYRINGE IVPB ONE (08:39)
[2020-04-11] MEDS ORDERED: Aspirin Enteric Coated 81 MG Tablet PO SCH (09:00)
[2020-04-11] MEDS ORDERED: Ondansetron 4 MG/2 ML VIAL IVP ONE ×2 (09:13→11:00)
[2020-04-11] MEDS ORDERED: *HR* HYDROmorphone PF 0.5 MG/0.5 ML SYRINGE IVP PRN (09:13)
[2020-04-11] MEDS ORDERED: *HR* PHENYLEPHRINE 1,000 MCG/10 ML SYRINGE IVP ONE (09:40)
[2020-04-11] MEDS ORDERED: *HR* OxyCODONE Immed Rel 5 MG TABLET PO PRN ×3 (11:00)
[2020-04-11] MEDS ORDERED: MOM Conc 10 ML UD.LIQ PO PRN (11:00)
[2020-04-11] MEDS ORDERED: Acetaminophen 325 MG TABLET PO PRN (11:00)
[2020-04-11] MEDS ORDERED: Naloxone 0.4 MG/ML INJ IVP PRN (11:00)
[2020-04-11 13:19] LABS: Hematocrit 33.7 % (35.3-44.9); Hemoglobin 10.8 g/dL (11.5-15.4)
[2020-04-11] MEDS: CeFAZolin 2 GM/120 ML BAG IVPB SCH (16:32)
[2020-04-11] MEDS ORDERED: Ondansetron ODT 4 MG TAB.RAPDIS PO PRN (19:00)
[2020-04-11] MEDS: Apixaban 2.5 MG TABLET PO SCH (20:02)
[2020-04-11] MEDS ORDERED: *HR* LORazepam 0.5 MG TABLET PO ONE (20:03)
[2020-04-12] MEDS: CeFAZolin 2 GM/120 ML BAG IVPB SCH (00:09)
[2020-04-12 04:39] LABS: Hematocrit 27.4 % (35.3-44.9); Hemoglobin 8.7 g/dL (11.5-15.4); Mean Corpuscular HGB Conc 31.8 g/dL (31.6-35.5); Mean Corpuscular Hemoglobin 26.1 pg (28.0-33.3); Mean Platelet Volume 9.8 fL (9.4-12.4); Platelet Count 172 K/mcL (140-400); Red Blood Count 3.33 M/mcL (3.82-4.97); Red Cell Distribution Width 19.2 % (11.5-14.5); White Blood Count 5.5 K/mcL (4.3-11.1)
[2020-04-12 04:40] LABS: Mean Corpuscular Volume 82.3 fL (83.0-100.0)
[2020-04-12] MEDS ORDERED: Ondansetron ODT 4 MG TAB.RAPDIS PO PRN (07:35)
[2020-04-12] MEDS ORDERED: DEXAMETHASONE 2 MG PO SCH (09:00)
[2020-04-12] MEDS ORDERED: Aspirin Enteric Coated 81 MG Tablet PO SCH (09:00)
[2020-04-12] MEDS: Apixaban 2.5 MG TABLET PO SCH ×2 (09:07→20:24)
[2020-04-12 09:37] LABS: Hematocrit 31.8 % (35.3-44.9); Hemoglobin 10.1 g/dL (11.5-15.4)
[2020-04-12 15:00] LABS: Hematocrit 31.3 % (35.3-44.9); Hemoglobin 9.7 g/dL (11.5-15.4)
[2020-04-12 20:30] LABS: Hematocrit 31.2 % (35.3-44.9); Hemoglobin 9.7 g/dL (11.5-15.4)
[2020-04-12 20:34] LABS: Bacteria,Urine Few per hpf (None-Few); Bilirubin,Urine Negative (Negative); Blood,Urine Negative (Negative); Clarity,Urine Clear (Clear); Color,Urine Colorless (Yellow); Glucose,Urine (UA) 100 mg/dL (Normal); Ketones,Urine Negative (Negative); Leukocyte Esterase,Urine Small (Negative); Mucus,Urine Few per lpf (None-Few); Nitrite,Urine Negative (Negative); Protein,Urine Negative (Neg-Trace); RBC,Urine 0-3 per hpf (0-3); Specific Gravity,Urine 1.007 (1.010-1.025); Squamous Epithelial Cell,Urine Few per hpf (None-Few); Urobilinogen,Urine Normal (Normal)
[2020-04-12] MEDS: *HR* LORazepam 0.5 MG TABLET PO PRN (21:43)
[2020-04-13 05:18] LABS: Basophils % 0.4 %; Eosinophils # 0.5 K/mcL (0.0-0.6); Eosinophils % 9.3 %; Hematocrit 27.6 % (35.3-44.9); Hemoglobin 8.7 g/dL (11.5-15.4); Immature Granulocytes % 0.6 % (0-4); Lymphocytes # 1.3 K/mcL (0.6-4.6); Lymphocytes % 24.8 %; Mean Corpuscular HGB Conc 31.5 g/dL (31.6-35.5); Mean Corpuscular Hemoglobin 26.1 pg (28.0-33.3); Mean Corpuscular Volume 82.9 fL (83.0-100.0); Mean Platelet Volume 9.2 fL (9.4-12.4); Monocytes # 0.7 K/mcL (0.0-1.3); Monocytes % 13.8 %; Neutrophils # 2.6 K/mcL (1.6-8.9); Platelet Count 217 K/mcL (140-400); Red Blood Count 3.33 M/mcL (3.82-4.97); Red Cell Distribution Width 19.5 % (11.5-14.5); Segmented Neutrophils % 51.1 %; White Blood Count 5.1 K/mcL (4.3-11.1)
[2020-04-13 05:26] LABS: INR 1.1; Prothrombin Time 12.4 Seconds (9.4-12.1)
[2020-04-13 05:43] LABS: % Iron Saturation 10 % (15-50); BUN/Creatinine Ratio 41 (6-26); Blood Urea Nitrogen 24 mg/dL (8-23); Carbon Dioxide 24 mEq/L (23-29); Chloride 109 mEq/L (98-107); Glucose 110 mg/dL (70-105); Iron 30 mcg/dL (50-170); Magnesium 1.9 mg/dL (1.6-2.6); Osmolality,Calculated 291 (280-300); Potassium 3.8 mEq/L (3.5-5.1); Sodium 138 mEq/L (136-145); Transferrin 219 mg/dL (203-362); eGFR For African Americans > 60 (> 60); eGFR For Non-African Americans > 60 (> 60)
[2020-04-13 05:58] LABS: Ferritin 120 ng/mL (10-120)
[2020-04-13] MEDS: Apixaban 2.5 MG TABLET PO SCH (08:11)
[2020-04-13] MEDS: *HR* LORazepam 0.5 MG TABLET PO PRN (08:12)
[2020-04-13 10:21] VITALS: BP 143/73
== END 2020-04-13 16:47 | disposition home health service (06) | DRG 480 ==
LOC: EMEROOARM 14:39 → 3NENU 14:39 → SUATTDRO 04-11 12:15
PROVIDERS: ADMIT Internal Medicine; ATTEND Pharmacist

== ENCOUNTER 2020-09-26 10:31 | Inpatient (IN) ==
[2020-09-26] MEDS ORDERED: Isovue-370 500 ML BOTTLE IVP ONE (10:38)
[2020-09-26] MEDS ORDERED: Ipratropium/Albuterol Neb 3 ML IH ONE (10:44)
[2020-09-26] MEDS ORDERED: Ipratropium/Albuterol Neb 3 ML ONE (10:45)
[2020-09-26] MEDS ORDERED: levoFLOXacin 500 MG/100 ML 500 MG/100 ML BAG IVPB ONE (11:13)
[2020-09-26] MEDS ORDERED: Piperacillin/Tazobactam 3.375 GM in 0.9 % Sodium Chloride Mini Bag 100 ML IVPB ONE (11:13)
[2020-09-26 11:31] LABS: Basophils # 0.1 K/mcL (0.0-0.2); Basophils % 0.6 %; Eosinophils # 0.2 K/mcL (0.0-0.6); Eosinophils % 2.7 %; Hematocrit 38.7 % (35.3-44.9); Immature Granulocytes % 0.4 % (0-4); Lymphocytes % 11.6 %; Mean Corpuscular Hemoglobin 24.7 pg (28.0-33.3); Mean Corpuscular Volume 79.6 fL (83.0-100.0); Mean Platelet Volume 8.8 fL (9.4-12.4); Monocytes # 0.7 K/mcL (0.0-1.3); Monocytes % 8.2 %; Neutrophils # 6.4 K/mcL (1.6-8.9); Platelet Count 389 K/mcL (140-400); Red Blood Count 4.86 M/mcL (3.82-4.97); Red Cell Distribution Width 18.3 % (11.5-14.5); Segmented Neutrophils % 76.5 %; White Blood Count 8.4 K/mcL (4.3-11.1)
[2020-09-26 11:35] LABS: INR 1.4
[2020-09-26 12:05] LABS: Alanine Aminotransferase 12 Units/L (7-52); Albumin 2.9 g/dL (3.5-5.7); Alkaline Phosphatase 94 Units/L (34-104); Aspartate Amino Transferase 26 Units/L (13-39); BUN/Creatinine Ratio 25 (6-26); Bilirubin,Total 0.5 mg/dL (0.3-1.0); Blood Urea Nitrogen 14 mg/dL (8-23); Calcium 8.4 mg/dL (8.6-10.3); Carbon Dioxide 23 mEq/L (23-29); Chloride 102 mEq/L (98-107); Glucose 106 mg/dL (70-105); Magnesium 1.8 mg/dL (1.6-2.6); Osmolality,Calculated 279 (280-300); Potassium 4.1 mEq/L (3.5-5.1); Sodium 134 mEq/L (136-145); Total Protein 5.9 g/dL (6.4-8.9); Troponin I < 0.03 ng/mL (< 0.04); eGFR For African Americans > 60 (> 60); eGFR For Non-African Americans > 60 (> 60)
[2020-09-26 12:55] LABS: Adenovirus Not Detected (Not Detect); Bordetella Pertussis Not Detected (Not Detect); Chlamydophila pneumoniae Not Detected (Not Detect); Coronavirus 229E Not Detected (Not Detect); Coronavirus HKU1 Not Detected (Not Detect); Coronavirus NL63 Not Detected (Not Detect); Coronavirus OC43 Not Detected (Not Detect); Human Metapneumovirus Not Detected (Not Detect); Human Rhinovirus/Enterovirus Not Detected (Not Detect); Influenza A Subtype 2009 H1 Not Detected (Not Detect); Influenza B Not Detected (Not Detect); Mycoplasma pneumoniae Not Detected (Not Detect); Parainfluenza Virus 1 Not Detected (Not Detect); Parainfluenza Virus 2 Not Detected (Not Detect); Parainfluenza Virus 3 Not Detected (Not Detect); Parainfluenza Virus 4 Not Detected (Not Detect); Respiratory Syncytial Virus Not Detected (Not Detect); SARS-CoV-2 Not Detected (Not Detect)
[2020-09-26] MEDS ORDERED: Naloxone 0.4 MG/ML INJ IVP PRN (13:31)
[2020-09-26] MEDS: Ipratropium/Albuterol Neb 3 ML IH PRN (21:57)
[2020-09-27] MEDS: Ipratropium/Albuterol Neb 3 ML IH PRN ×3 (03:44→16:09)
[2020-09-27 04:26] LABS: Basophils % 0.6 %; Eosinophils # 0.3 K/mcL (0.0-0.6); Hematocrit 36.6 % (35.3-44.9); Hemoglobin 11.2 g/dL (11.5-15.4); Immature Granulocytes % 0.1 % (0-4); Lymphocytes % 15.1 %; Mean Corpuscular HGB Conc 30.6 g/dL (31.6-35.5); Mean Corpuscular Hemoglobin 24.6 pg (28.0-33.3); Mean Corpuscular Volume 80.4 fL (83.0-100.0); Mean Platelet Volume 8.7 fL (9.4-12.4); Monocytes # 0.7 K/mcL (0.0-1.3); Monocytes % 9.6 %; Neutrophils # 4.7 K/mcL (1.6-8.9); Platelet Count 328 K/mcL (140-400); Red Blood Count 4.55 M/mcL (3.82-4.97); Red Cell Distribution Width 18.2 % (11.5-14.5); Segmented Neutrophils % 69.6 %; White Blood Count 6.8 K/mcL (4.3-11.1)
[2020-09-27 04:42] LABS: BUN/Creatinine Ratio 24 (6-26); Blood Urea Nitrogen 14 mg/dL (8-23); Calcium 8.3 mg/dL (8.6-10.3); Carbon Dioxide 25 mEq/L (23-29); Chloride 104 mEq/L (98-107); Glucose 93 mg/dL (70-105); Osmolality,Calculated 282 (280-300); Sodium 136 mEq/L (136-145); eGFR For African Americans > 60 (> 60); eGFR For Non-African Americans > 60 (> 60)
[2020-09-27] MEDS ORDERED: levoFLOXacin 500 MG/100 ML 500 MG/100 ML BAG IVPB SCH (05:00)
[2020-09-27] MEDS ORDERED: *HR* Enoxaparin 40 MG/0.4 ML SYRINGE SQ SCH (06:00)
[2020-09-27] MEDS ORDERED: Piperacillin/Tazobactam 3.375 GM in 0.9 % Sodium Chloride Mini Bag 100 ML IVPB SCH (06:00)
[2020-09-27] MEDS: *HR* LORazepam 0.5 MG TABLET PO PRN (12:18)
[2020-09-27] MEDS: Piperacillin/Tazobactam 3.375 GM in 0.9 % Sodium Chloride Mini Bag 100 ML IVPB SCH ×2 (13:53→22:01)
[2020-09-27] MEDS ORDERED: *HR* OxyCODONE/APAP 5/325 TABLET PO PRN (16:25)
[2020-09-27] MEDS ORDERED: *HR* OxyCODONE Immed Rel 5 MG TABLET PO PRN (17:27)
[2020-09-27] MEDS ORDERED: Ondansetron ODT 4 MG TAB.RAPDIS PO PRN (17:27)
[2020-09-27] MEDS: Doxycycline 100 MG CAPSULE PO SCH (20:47)
[2020-09-27] MEDS: Apixaban 2.5 MG TABLET PO SCH (20:47)
[2020-09-27] MEDS: MethylPREDNISolone 40 MG/ML VIAL IVP SCH (23:21)
[2020-09-28 02:40] LABS: Basophils % 0.4 %; Eosinophils # 0.2 K/mcL (0.0-0.6); Hematocrit 35.5 % (35.3-44.9); Hemoglobin 10.8 g/dL (11.5-15.4); Immature Granulocytes % 0.4 % (0-4); Lymphocytes # 0.5 K/mcL (0.6-4.6); Lymphocytes % 10.3 %; Mean Corpuscular HGB Conc 30.4 g/dL (31.6-35.5); Mean Corpuscular Hemoglobin 25.4 pg (28.0-33.3); Mean Corpuscular Volume 83.3 fL (83.0-100.0); Mean Platelet Volume 9.5 fL (9.4-12.4); Monocytes # 0.2 K/mcL (0.0-1.3); Neutrophils # 4.1 K/mcL (1.6-8.9); Platelet Count 240 K/mcL (140-400); Red Blood Count 4.26 M/mcL (3.82-4.97); Red Cell Distribution Width 18.4 % (11.5-14.5); Segmented Neutrophils % 81.9 %
[2020-09-28 03:02] LABS: BUN/Creatinine Ratio 25 (6-26); Blood Urea Nitrogen 13 mg/dL (8-23); Calcium 8.1 mg/dL (8.6-10.3); Carbon Dioxide 23 mEq/L (23-29); Chloride 107 mEq/L (98-107); Glucose 115 mg/dL (70-105); Magnesium 1.7 mg/dL (1.6-2.6); Osmolality,Calculated 283 (280-300); Phosphorous 3.9 mg/dL (2.7-4.5); Potassium 3.8 mEq/L (3.5-5.1); Sodium 136 mEq/L (136-145); eGFR For African Americans > 60 (> 60); eGFR For Non-African Americans > 60 (> 60)
[2020-09-28] MEDS: Piperacillin/Tazobactam 3.375 GM in 0.9 % Sodium Chloride Mini Bag 100 ML IVPB SCH ×3 (05:23→20:47)
[2020-09-28] MEDS: Apixaban 2.5 MG TABLET PO SCH ×2 (08:01→20:48)
[2020-09-28] MEDS: MethylPREDNISolone 40 MG/ML VIAL IVP SCH ×2 (08:01→15:49)
[2020-09-28] MEDS: Doxycycline 100 MG CAPSULE PO SCH ×2 (08:01→20:48)
[2020-09-28] MEDS: *HR* LORazepam 0.5 MG TABLET PO PRN ×2 (09:42→22:47)
[2020-09-28] MEDS ORDERED: Isovue-370 500 ML BOTTLE IVP ONE (11:03)
[2020-09-28] MEDS: Morphine Sulfate Oral CONC 10 MG/0.5 ML ORAL.SYG SL PRN (15:49)
[2020-09-28] MEDS: Mirtazapine 15 MG TABLET PO SCH (20:48)
[2020-09-29] MEDS: MethylPREDNISolone 40 MG/ML VIAL IVP SCH ×4 (00:52→23:11)
[2020-09-29] MEDS ORDERED: levoFLOXacin 750 MG/150 ML 750 MG/150 ML BAG IVPB SCH (05:00)
[2020-09-29 06:01] LABS: Hematocrit 36.5 % (35.3-44.9); Hemoglobin 11.5 g/dL (11.5-15.4); Mean Corpuscular HGB Conc 31.5 g/dL (31.6-35.5); Mean Corpuscular Hemoglobin 25.3 pg (28.0-33.3); Mean Corpuscular Volume 80.2 fL (83.0-100.0); Mean Platelet Volume 9.2 fL (9.4-12.4); Platelet Count 353 K/mcL (140-400); Red Blood Count 4.55 M/mcL (3.82-4.97)
[2020-09-29 06:02] LABS: White Blood Count 12.4 K/mcL (4.3-11.1)
[2020-09-29] MEDS: Piperacillin/Tazobactam 3.375 GM in 0.9 % Sodium Chloride Mini Bag 100 ML IVPB SCH ×3 (06:47→23:10)
[2020-09-29] MEDS: Doxycycline 100 MG CAPSULE PO SCH ×2 (07:51→19:53)
[2020-09-29] MEDS: Apixaban 2.5 MG TABLET PO SCH (07:51)
[2020-09-29 09:35] LABS: Alanine Aminotransferase 15 Units/L (7-52); Albumin 2.7 g/dL (3.5-5.7); Albumin/Globulin Ratio 0.9 (1.1-2.2); Alkaline Phosphatase 80 Units/L (34-104); Aspartate Amino Transferase 25 Units/L (13-39); BUN/Creatinine Ratio 37 (6-26); Bilirubin,Total 0.5 mg/dL (0.3-1.0); Blood Urea Nitrogen 18 mg/dL (8-23); Calcium 8.6 mg/dL (8.6-10.3); Carbon Dioxide 21 mEq/L (23-29); Chloride 108 mEq/L (98-107); Globulin 2.9 g/dL (2.4-3.5); Glucose 173 mg/dL (70-105); Osmolality,Calculated 290 (280-300); Potassium 4.5 mEq/L (3.5-5.1); Sodium 137 mEq/L (136-145); Total Protein 5.6 g/dL (6.4-8.9); eGFR For African Americans > 60 (> 60); eGFR For Non-African Americans > 60 (> 60)
[2020-09-29] MEDS: *HR* LORazepam 0.5 MG TABLET PO PRN ×2 (11:57→18:38)
[2020-09-29] MEDS: Morphine Sulfate Oral CONC 10 MG/0.5 ML ORAL.SYG SL PRN (18:37)
[2020-09-29] MEDS: Mirtazapine 15 MG TABLET PO SCH (19:53)
[2020-09-29] MEDS: Ipratropium/Albuterol Neb 3 ML IH PRN (20:14)
[2020-09-30] MEDS: Piperacillin/Tazobactam 3.375 GM in 0.9 % Sodium Chloride Mini Bag 100 ML IVPB SCH (05:51)
[2020-09-30] MEDS: MethylPREDNISolone 40 MG/ML VIAL IVP SCH (08:16)
[2020-09-30] MEDS: Doxycycline 100 MG CAPSULE PO SCH (08:16)
[2020-09-30] MEDS: Apixaban 2.5 MG TABLET PO SCH (10:25)
[2020-09-30 10:34] VITALS: BP 142/79
[2020-09-30] MEDS: *HR* LORazepam 0.5 MG TABLET PO PRN (14:20)
== END 2020-09-30 16:11 | disposition hospice, home (50) | DRG 186 ==
LOC: EMEROOARM 10:31 → SUATTDRO 17:03 → 2ANU 17:03
PROVIDERS: ADMIT Internal Medicine; ATTEND Family Medicine
PROC: IRDRAIN (2020-09-26 13:00)